=== PATIENT | male | born 1985 | race Caucasian/White ===

== ENCOUNTER 2023-05-12 11:43 | Emergency (ER) | payer SELFPAY ==
[2023-05-12] MEDS ORDERED: fentaNYL 100 MCG/2 ML SDV ONE (11:55)
[2023-05-12] MEDS ORDERED: fentaNYL 100 MCG/2 ML SDV IVPUSH ONE ×2 (11:56→12:24)
[2023-05-12] MEDS ORDERED: Sodium Chloride 0.9% 10 ML Syringe FLUSH PRN (11:56)
[2023-05-12 12:04] LABS: BASOPHILS ABSOLUTE AUTO 0.02 K/mm3 (0.01-0.08); BASOPHILS PERCENT AUTO 0.2 % (0.1-1.2); EOSINOPHILS ABSOLUTE AUTO 0.05 K/mm3 (0.04-0.54); EOSINOPHILS PERCENT AUTO 0.4 (0.8-7.0); HEMATOCRIT 47.9 % (40.1-51.0); HEMOGLOBIN 16.7 gm/dl (13.7-17.5); IMMATURE GRAN ABSOLUTE AUTO 0.05 K/mm3 (0.00-0.10); IMMATURE GRAN PERCENT AUTO 0.4 % (<=1.0); LYMPHOCYTES ABSOLUTE AUTO 1.58 K/mm3 (1.32-3.57); LYMPHOCYTES PERCENT AUTO 12.8 % (21.8-53.1); MEAN CORPUSCULAR HEMOGLOBIN 30.9 pg (25.7-32.2); MEAN CORPUSCULAR HGB CONC 34.9 g/dl (32.2-35.5); MEAN CORPUSCULAR VOLUME 88.5 fl (79.0-92.2); MEAN PLATELET VOLUME 9.4 fl (9.4-12.3); MONOCYTES ABSOLUTE AUTO 0.91 K/mm3 (0.30-0.82); MONOCYTES PERCENT AUTO 7.4 % (5.3-12.2); NEUTROPHILS ABSOLUTE AUTO 9.73 K/mm3 (1.78-5.38); NEUTROPHILS PERCENT AUTO 78.8 % (34.0-67.9); PLATELET COUNT,PLT 314 K/mm3 (163-337); RED BLOOD CELL COUNT 5.41 M/mm3 (4.63-6.08); WHITE BLOOD CELL COUNT,WBC 12.34 K/mm3 (4.23-9.07)
[2023-05-12] MEDS ORDERED: Acetaminophen 325 MG Tab PO ONE (12:22)
[2023-05-12] MEDS ORDERED: Iopamidol 612 MG/ML 30 ML SDV IVPUSH ONE (12:23)
[2023-05-12] MEDS ORDERED: Iopamidol 612 MG/ML 100 ML Bottle IVPUSH ONE (12:23)
[2023-05-12] MEDS ORDERED: Sodium Chloride 0.9% 10 ML Syringe FLUSH ONE (12:23)
[2023-05-12 12:26] LABS: A/G RATIO 1.1 (1-2); ALBUMIN 4.3 g/dl (3.4-5.0); ANION GAP 11.3 (5-15); BILIRUBIN TOTAL 0.7 mg/dL (0.2-1.0); BUN/CREATININE RATIO 18.9 (14-18); CALCIUM 9.3 mg/dL (8.5-10.1); CREATININE 0.9 mg/dL (0.7-1.3); EST CRCL DRUG DOSING (CG) 119.69 mL/min; POTASSIUM,K 4.3 mEq/L (3.5-5.1); PROTEIN TOTAL,TP 8.3 g/dl (6.4-8.2)
[2023-05-12 12:58] LABS: APPEARANCE,URINE CLEAR (Clear); BILIRUBIN,URINE NEGATIVE (Negative); COLOR,URINE YELLOW (Yellow); GLUCOSE,URINE NEGATIVE (Negative); KETONES,URINE NEGATIVE (Negative); LEUKOCYTE ESTERASE,URINE NEGATIVE (Negative); NITRITE,URINE NEGATIVE (Negative); OCCULT BLOOD,URINE TRACE-LYSED (Negative); PROTEIN,URINE 2+ (Negative); UROBILINOGEN,URINE 0.2 (0.2-1.0)
[2023-05-12] MEDS ORDERED: Ketorolac 30 MG/ML SDV IVPUSH ONE (13:15)
[2023-05-12 14:01] LABS: BACTERIA,URINE FEW /hpf (FEW); EPITHELIAL CELLS,URINE 0-5 /hpf (0-5); MUCUS,URINE FEW /hpf (FEW); RBC,URINE 0-5 /hpf (0-5); WBC,URINE 0-5 /hpf (0-5)
[2023-05-12] MEDS ORDERED: oxyCODONE 5 MG Tab PO ONE (14:15)
[2023-05-12] MEDS ORDERED: Orphenadrine 100 MG Tab.ER PO SCH (14:30)
== END 2023-05-12 14:23 | disposition home or self-care (01) ==
LOC: JD.ED 11:43
DX: S22.41XA Multiple fractures of ribs, right side, initial encounter for closed fracture (principal); S32.039A Unspecified fracture of third lumbar vertebra, initial encounter for closed fracture; S32.049A Unspecified fracture of fourth lumbar vertebra, initial encounter for closed fracture; S27.321A Contusion of lung, unilateral, initial encounter; V80.010A Animal-rider injured by fall from or being thrown from horse in noncollision accident, initial encounter
CPT/HCPCS: 36415; 70450; 71260; 72125; 72131; 74177; 80053; 81001; 85025; 96374; 96375; 96376; 99284; A9270; J1885; J3010; J3490; Q9967